=== PATIENT | male | born 1975 | race Caucasian/White ===

== ENCOUNTER 2017-01-06 06:09 | Day surgery (SDC) | payer OTHER ==
[2017-01-06] MEDS ORDERED: ceFAZolin 2 GM/DEXTROSE 100 ML IV ONE (06:22)
[2017-01-06] MEDS ORDERED: LR 1,000 ML IV SCH (06:22)
[2017-01-06] MEDS ORDERED: LR 1,000 ML IV ONE (06:31)
[2017-01-06] MEDS ORDERED: LIDOCAINE 1% 2 ML INJ ID PRN (06:31)
[2017-01-06] MEDS ORDERED: BUPIVACAINE/EPI 0.5% 30 ML SDV ONE (06:36)
--- NOTE | 2017-01-06 07:01 | PDHPUP ---
History & Physical Update H&P update statement: This history and physical update is based on an assessment of the patient which was completed after admission or registration (within 24 hours), but prior to the surgery/procedure. H&P update: H&P reviewed & patient examined, no change in patient's condition since H&P completed
[2017-01-06] MEDS ORDERED: fentaNYL 100 MCG/2 ML INJ ONE ×2 (07:04→08:31)
[2017-01-06] MEDS ORDERED: PROPOFOL 200 MG/20 ML VIAL ONE (07:04)
[2017-01-06] MEDS ORDERED: ALBUTEROL 3 ML DEYVIAL IH PRN (07:06)
[2017-01-06] MEDS ORDERED: NALOXONE HCL 0.4 MG/ML INJ IVP PRN (07:06)
[2017-01-06] MEDS ORDERED: HYDROCODONE/APAP 5/325 TAB PO PRN (07:06)
[2017-01-06] MEDS ORDERED: ACETAMINOPHEN 500 MG TAB PO PRN (07:06)
[2017-01-06] MEDS ORDERED: MIDAZOLAM 2 MG/2 ML VIAL IVP ONE (07:06)
[2017-01-06] MEDS ORDERED: ONDANSETRON 4 MG/2 ML VIAL IVP PRN ×2 (07:06→07:53)
[2017-01-06] MEDS ORDERED: OXYCODONE/APAP 5/325 TAB PO PRN ×2 (07:06→07:53)
[2017-01-06] MEDS ORDERED: LIDOCAINE 2% 5 ML SDV ONE (07:07)
[2017-01-06 07:08] LABS: % IMMATURE GRANULYOCYTES 0.4 % (0.0-1.1); ABSOLUTE IMMATURE GRANULOCYTES 0.03 10^3/uL (0.00-0.10); ADD DIFF? NO; ADD MORPH? NO; ADD SCAN? NO; ATYPICAL LYMPHOCYTE FLAG 0 (0-99); FRAGMENT RBC FLAG 0 (0-99); HEMATOCRIT 46.7 % (40.0-51.0); HEMOGLOBIN 16.7 g/dL (13.7-17.5); LEFT SHIFT FLG 0 (0-99); LIPEMIA HEMOLYSIS FLAG 90 (0-99); MEAN CELL HEMOGLOBIN 31.7 pg (27.9-34.1); MEAN CELL HEMOGLOBIN CONCENTR. 35.8 g/dL (32.4-36.7); MEAN CELL VOLUME 88.8 fL (81.5-99.8); MEAN PLATELET VOLUME 10.6 fL (8.7-11.7); PLATELET CLUMPS FLAG 0 (0-99); PLATELET COUNT 259 10^3/uL (150-400); RED BLOOD CELL COUNT 5.26 10^6/uL (4.40-6.38); RED CELL DISTRIBUTION WIDTH 11.6 % (11.5-15.2)
[2017-01-06] MEDS ORDERED: MIDAZOLAM 2 MG/2 ML VIAL ONE (07:08)
--- NOTE | 2017-01-06 07:08 | PDANEPAE ---
ANE History of Present Illness Left Knee Scope ANE Past Medical History - Cardiovascular History Hx Hypertension: No Hx Arrhythmias: No Hx Chest Pain: No Hx Coronary Artery / Peripheral Vascular Disease: No Hx CHF / Valvular Disease: No Hx Palpitations: No - Pulmonary History Hx COPD: No Hx Sleep Apnea: No Sleep Apnea Screening Result - Last Documented: Negative Pulmonary History Comment: POST-OP ACE PNEUMONIA 11/2011 MINOR ASTHMA TRIGGERED BY ENVIROMENTAL PARTICULATES - Neurologic History Hx Cerebrovascular Accident: No Hx Seizures: No Hx Dementia: No - Endocrine History Hx Diabetes: No Endocrine History Comment: PARATHYROIDECTOMY - Renal History Hx Renal Disorders: No - Liver History Hx Hepatic Disorders: No - Neurological & Psychiatric Hx Hx Neurological and Psychiatric Disorders: Yes Neurological / Psychiatric History Comment: MIGRAINES AVERAGE 5 X YR. ANXIETY/ DEPRESSION RELATED TO PHYSICAL HEALTH. HAS LEFT OVER PAIN LT SIDE OF BODY. SUSTAINED INJURIES A PARATROOPER. INSOMNIA. 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 - Chronic Pain History Chronic Pain: Yes (MAJOR JOINTS,SPINE,KNEE'S,LT SHLDR,WRISTS) - Surgical History Prior Surgeries: PARATHYROIDECTOMY 12/2012. CERVICAL FUSION 5-7. RT KNEE X 6. LT SHLDR 08/2007 ANE Review of Systems Review of Systems: - Exercise capacity METS (RN): 4 METS ANE Patient History - Allergies Allergies/Adverse Reactions: lactose Allergy (Verified 05/09/13 10:49) - Home Medications Home Medications: Lactase [Lactaid] 05/02/13 [Last Taken 05/20/13] Pregabalin [Lyrica 75mg (RX)] 05/02/13 [Last Taken 01/05/17] Percocet 5-325 mg Tablet 12/27/16 [Last Taken 01/06/17] Amitriptyline HCl 01/06/17 [Last Taken 01/05/17 25MG] - NPO status NPO Since - Liquids (Date): 01/05/17 NPO Since - Liquids (Time): 21:00 NPO Since - Solids (Date): 01/05/17 NPO Since - Solids (Time): 19:00 - Smoking Hx Smoking Status: Never smoked - Family Anes Hx Family Hx Anesthesia Complications: none ANE Labs/Vital Signs - Labs Result Diagrams: 01/06/17 06:59 - Vital Signs Blood Pressure: 127/61 Heart Rate: 71 Respiratory Rate: 18 O2 Sat (%): 95 Height: 180.34 cm Weight: 70.307 kg ANE Physical Exam - Airway Neck exam: FROM Mallampati Score: Class 2 Mouth exam: normal dental/mouth exam - Pulmonary Pulmonary: clear to auscultation - Cardiovascular Cardiovascular: regular rate and rhythym - ASA Status ASA Status: I ANE Anesthesia Plan Anesthesia Plan: GA w LMA
[2017-01-06] MEDS ORDERED: ONDANSETRON 4 MG/2 ML VIAL ONE (07:12)
[2017-01-06] MEDS ORDERED: DEXAMETHASONE 4 MG/ML VIAL ONE (07:12)
[2017-01-06] MEDS ORDERED: KETOROLAC 30 MG/1 ML SDV ONE (07:12)
[2017-01-06] MEDS ORDERED: ONDANSETRON DISINTEGRATING 4 MG TAB PO PRN (07:53)
--- NOTE | 2017-01-06 08:17 | POSTANESTH ---
Post Anesthetic Evaluation Cardiovascular Status: Normal, Stable Respiratory Status: Normal, Stable Level of Consciousness/Mental Status: Can Participate in Eval, Alert and Oriented Pain Control: Adequate, Prn Tx Ordered Nausea/Vomiting Control: Adequate, Prn Tx Ordered Complications Possibly Related to Anesthesia: None Noted
[2017-01-06] MEDS: fentaNYL 100 MCG/2 ML INJ IVP PRN ×2 (08:33→08:48)
[2017-01-06 09:18] VITALS: TEMP 97.7
[2017-01-06] MEDS ORDERED: OXYCODONE/APAP 5/325 TAB ONE (09:43)
[2017-01-06 11:16] VITALS: BP 114/62; PULSE 74; RESP 18; O2SAT 74
--- NOTE | 2017-01-09 09:34 | GOP ---
[f rep st] OPERATIVE REPORT DATE OF OPERATION: 01/06/2017 SURGEON: Chevy Smith MD ANESTHESIA: General. PREOPERATIVE DIAGNOSIS: Left knee lateral meniscus tear. POSTOPERATIVE DIAGNOSIS: Left knee lateral meniscus tear. PROCEDURE PERFORMED: Left knee arthroscopic partial lateral meniscectomy. FINDINGS: INDICATIONS: The patient is a 41-year-old gentleman, who sustained a left lateral meniscus tear identified on the MRI. He had symptomatic mechanical symptoms and failed nonoperative treatment. He wished to proceed with operative intervention. Risks and benefits were explained to the patient and informed consent was obtained. DESCRIPTION OF PROCEDURE: The patient was identified in the preoperative holding area. His left lower extremity was marked. He was then brought back to the operating room after induction of anesthesia. A nonsterile tourniquet was placed on his left upper thigh. He was then prepped and draped in the usual sterile fashion. A time-out was taken to confirm patient laterality, procedures, allergies, and antibiotic status. We proceeded to make 2 parapatellar portals. Diagnostic arthroscopy was performed. The tourniquet was inflated to 250 mmHg. There were no loose bodies in the suprapatellar pouch , the lateral gutter, or medial gutter. He had no findings of arthritis in the patellofemoral joint, medial femoral compartment, or lateral femoral compartment. The ACL is intact. Meniscus was in good condition in the medial compartment. The lateral compartment had approximately 25% tear of the lateral meniscus radial with a flap proceeding into the joint. This was removed approximately 25 % with a series of biters and petrona to a stable rim. We then removed all excess fluid. Arthroscopy equipment was removed and incisions were closed with a single stitch each. The patient was placed in a sterile dressing. The tourniquet was deflated. He was brought to PACU in good condition with a well-perfused limb. Prior to closure Marcaine with epinephrine was injected into the portal sites. /[id number]/MODL MTDD
== END 2017-01-06 10:25 | disposition home or self-care (01) ==
LOC: FSGY 06:09
PROVIDERS: ATTEND Orthopaedic Surgery
PROC: 0MQP4ZZ Repair Left Knee Bursa and Ligament, Percutaneous Endoscopic Approach (ICD-10-PCS; principal; 2017-01-06 12:15)
DX: S83.262A Peripheral tear of lateral meniscus, current injury, left knee, initial encounter (principal); X58.XXXA Exposure to other specified factors, initial encounter; G43.909 Migraine, unspecified, not intractable, without status migrainosus; F41.9 Anxiety disorder, unspecified; Z98.1 Arthrodesis status
CPT/HCPCS: J0171; J0690; J1100; J1885; J2250; J2405; J2704; J3010